=== PATIENT | male | born 1970 | race Caucasian/White ===

== ENCOUNTER 2016-11-14 09:25 | Emergency (ER) | payer OTHER ==
[~2016-11-14] VITALS: Ht 185.4 cm; Wt 78.0 kg
[2016-11-14] MEDS ORDERED: METRONIDAZOLE500 MG ORAL (09:37)
--- NOTE | 2016-11-14 09:54 | Emergency Room Report ---
History of Present Illness General Chief Complaint: Diarrhea Source: Patient Present Illness HPI Patient is a 46-year-old male who presented after increased abdominal pain and diarrhea. Patient stated that for several weeks has been having increased abdominal cramping as well as bloody stool. Patient had previously been taking Bactrim for urinary tract infection. He subsequently began increased diarrhea and was started on oral Flagyl. Patient had testing performed for possible C. difficile colitis. Patient had been taking a probiotic. The patient reports having a prior inguinal hernia repair. He denies any current vomiting. He reports having some weight loss. Allergies: Coded Allergies: No Known Allergies (Unverified , 11/14/16) Patient History Past Medical History: see triage record Reviewed Nursing Documentation: PMH: Agreed, PSxH: Agreed Nursing Documentation-PMH Past Medical History: No History, Except For Review of Systems All Other Systems: negative except mentioned in HPI Physical Exam Vital Signs Date Time Temp Pulse Resp B/P Pulse Ox O2 Delivery O2 Flow Rate FiO2 11/14/16 09:28 99.0 130 18 114/77 99 Room Air Sp02 EP Interpretation: reviewed, normal General Appearance: normal inspection, well appearing, no apparent distress, alert, GCS 15 Head: atraumatic ENT: normal ENT inspection, hearing grossly normal, normal voice Neck: normal inspection, full range of motion, supple, no bony tend Respiratory: normal inspection, lungs clear, normal breath sounds, no respiratory distress, no retraction, no wheezing Cardiovascular #1: regular rate, rhythm, no edema Gastrointestinal: normal bowel sounds, non tender, soft, no guarding, no hernia , tenderness - mild diffuse Genitourinary: no CVA tenderness Musculoskeletal: normal inspection, back normal, normal range of motion Neurologic: normal inspection, alert, oriented x3, responsive, tools developer III-XII nml as tested, speech normal Psychiatric: normal inspection, judgement/insight normal, mood/affect normal Skin: normal color, no rash, other - hand finger Medical Decision Making Diagnostic Impression: Primary Impression: Acute colitis Additional Impressions: Dehydration Hyponatremia ER Course Patient presented for abdominal pain. Differential diagnoses included ischemic bowel, appendicitis, perforated viscus, abdominal aortic aneurysm, inferior myocardial infarction, viral gastroenteritis Because of complexity of patient's case laboratory testing and imaging studies were ordered.The patient given IV fluids as well as IV antibiotics. Patient noted have some episodes weight loss as well as bloody stool.The patient had no recent travel but had been on several antibiotics recently.CT abdomen pelvis read by radiology showed colitis. Laboratory testing was notable for mildly elevated white blood count. Patient was discussed with Dr. Guerrero for the patient's HMO who agreed accept patient in transfer. Labs Test 11/14/16 09:40 11/14/16 10:45 11/14/16 11:51 White Blood Count 14.8 K/UL (4.8-10.8) Red Blood Count 5.11 M/UL (4.70-6.10) Hemoglobin 14.2 G/DL (14.2-18.0) Hematocrit 43.3 % (42.0-52.0) Mean Corpuscular Volume 85 FL (80-99) Mean Corpuscular Hemoglobin 27.8 PG (27.0-31.0) Mean Corpuscular Hemoglobin Concent 32.8 G/DL (32.0-36.0) Red Cell Distribution Width 11.0 % (11.6-14.8) Platelet Count 401 K/UL (150-450) Mean Platelet Volume 6.1 FL (6.5-10.1) Neutrophils (%) (Auto) 74.0 % (45.0-75.0) Lymphocytes (%) (Auto) 10.7 % (20.0-45.0) Monocytes (%) (Auto) 12.2 % (1.0-10.0) Eosinophils (%) (Auto) 1.3 % (0.0-3.0) Basophils (%) (Auto) 1.8 % (0.0-2.0) Prothrombin Time 18.7 SEC (9.30-11.50) Prothromb Time International Ratio 1.8 (0.9-1.1) Activated Partial Thromboplast Time 34 SEC (23-33) Sodium Level 120 mEQ/L (135-145) Potassium Level 4.4 mEQ/L (3.4-4.9) Chloride Level 76 mEQ/L (98-107) Carbon Dioxide Level 27 mEQ/L (20-30) Anion Gap 17 (5-15) Blood Urea Nitrogen 11 mg/dL (7-23) Creatinine 0.9 mg/dL (0.7-1.2) Estimat Glomerular Filtration Rate > 60 mL/min (>60) Glucose Level 129 mg/dL (74-106) Calcium Level 8.9 mg/dL (8.6-10.2) Total Bilirubin 0.3 mg/dL (0.0-1.2) Aspartate Amino Transf (AST/SGOT) 79 U/L (5-40) Alanine Aminotransferase (ALT/SGPT) 28 U/L (3-41) Alkaline Phosphatase 80 U/L (40-129) Total Protein 6.3 g/dL (6.6-8.7) Albumin 3.0 g/dL (3.5-5.2) Globulin 3.3 g/dL Albumin/Globulin Ratio 0.9 (1.0-2.7) Lipase 23 U/L (< 60) Urine Color Pale yellow Urine Appearance Clear Urine pH 6.5 (4.5-8.0) Urine Specific [place] 1.015 (1.005-1.035) Urine Protein Negative (NEGATIVE) Urine Glucose (UA) Negative (NEGATIVE) Urine Ketones 1+ (NEGATIVE) Urine Occult Blood 2+ (NEGATIVE) Urine Nitrite Negative (NEGATIVE) Urine Bilirubin Negative (NEGATIVE) Urine Urobilinogen Normal MG/DL (0.0-1.0) Urine Leukocyte Esterase 1+ (NEGATIVE) Urine RBC 2-4 /HPF (0 - 0) Urine WBC 2-4 /HPF (0 - 0) Urine Squamous Epithelial Cells Occasional /LPF Urine Bacteria Occasional /HPF (NONE) Urine Random Sodium < 10 mmol/L Last Vital Signs Date Time Temp Pulse Resp B/P Pulse Ox O2 Delivery O2 Flow Rate FiO2 11/14/16 09:28 99.0 130 18 114/77 99 Room Air Status: unchanged Disposition: XFER [facility] Condition: Serious Referrals: [facility],REFERRING (PCP) Ciro Garcia Nov 14, 2016 09:54
[2016-11-14 10:18] LABS: BASOPHILS % (AUTO) 1.8 % (0.0-2.0); EOSINOPHILS % (AUTO) 1.3 % (0.0-3.0); LYMPHOCYTES % (AUTO) 10.7 % (20.0-45.0); MEAN CORPUSCULAR HEMOGLOBIN 27.8 PG (27.0-31.0); MEAN CORPUSCULAR HGB CONC 32.8 G/DL (32.0-36.0); MEAN CORPUSCULAR VOLUME 85 FL (80-99); MEAN PLATELET VOLUME 6.1 FL (6.5-10.1); MONOCYTES % (AUTO) 12.2 % (1.0-10.0); PLATELET COUNT 401 K/UL (150-450); RED BLOOD COUNT 5.11 M/UL (4.70-6.10); WHITE BLOOD COUNT 14.8 K/UL (4.8-10.8)
[2016-11-14 10:22] VITALS: BP 114/64
[2016-11-14 10:27] LABS: ALANINE AMINOTRANSFERASE 28 U/L (3-41); ALBUMIN/GLOBULIN RATIO 0.9 (1.0-2.7); ASPARTATE AMINO TRANSFERASE 79 U/L (5-40); CALCIUM 8.9 mg/dL (8.6-10.2); CARBON DIOXIDE 27 mEQ/L (20-30); CHLORIDE 76 mEQ/L (98-107); CREATININE 0.9 mg/dL (0.7-1.2); GLOMERULAR FILTRATION RATE > 60 mL/min (>60); HEMOLYSIS 4; LIPASE 23 U/L (< 60); POTASSIUM 4.4 mEQ/L (3.4-4.9); TOTAL PROTEIN 6.3 g/dL (6.6-8.7)
[2016-11-14 10:29] LABS: INR 1.8 (0.9-1.1); PROTHROMBIN TIME 18.7 SEC (9.30-11.50)
[2016-11-14 10:32] LABS: ANION GAP 17 (5-15); SODIUM 120 mEQ/L (135-145)
[2016-11-14 11:31] LABS: APPEARANCE,URINE CLEAR; KETONES,URINE 1+ (NEGATIVE); LEUKOCYTE ESTERASE ,URINE 1+ (NEGATIVE); NITRITE,URINE NEGATIVE (NEGATIVE); PH,URINE 6.5 (4.5-8.0); PROTEIN,URINE NEGATIVE (NEGATIVE); UROBILINOGEN,URINE NORMAL MG/DL (0.0-1.0)
[2016-11-14 11:43] LABS: BACTERIA,URINE OCCASIONAL /HPF; SQUAMOUS EPITHELIAL CELL,UR OCCASIONAL /LPF (NONE/OCC)
[2016-11-14] MEDS ORDERED: metroNIDAZOLE 500mg tab ORAL ONE (12:30)
[2016-11-14 12:58] VITALS: BP 116/65
[2016-11-14 13:04] VITALS: BP 116/65
--- NOTE | 2016-11-15 11:03 | Diagnostic Imaging Report ---
Clinical Indication: Abdominal pain and diarrhea Technique: Patient given oral contrast. IV administration nonionic contrast. Venous phase spiral acquisition obtained through the abdomen and pelvis. Multiplanar reconstructions were generated. Total dose length product 89 mGycm. CTDIvol(s) 17 mGy. Dose reduction achieved using automated exposure control Comparison: None Findings: The appendix is normal. There is marked wall thickening of entirety of the colon, most striking in the ascending and proximal transverse colon. There is also mild wall thickening of the terminal ileum. No evidence of diverticulosis or diverticulitis. No small bowel distention. Contrast is seen as far distally as the ascending colon. Prominent and numerous mesenteric lymph nodes are noted, particularly in the right lower quadrant. No free or loculated intraperitoneal air or fluid is evident. The distal esophagus, stomach, duodenum are unremarkable. No small bowel wall thickening. The liver is mildly hypoattenuating, consistent with fatty change. The gallbladder, bile ducts, pancreas, spleen, adrenals kidneys are all unremarkable. No retroperitoneal or pelvic mass or adenopathy. Calcifications are seen in the prostate. The included lung bases are clear. The bones are unremarkable. Impression: Diffuse colon wall thickening, consistent with colitis, nonspecific as regards etiology. There is also minimal inflammation of the terminal ileum. Mesenteric lymphadenopathy, suspect reactive related to the above. Equivocal mild hepatic hypoattenuation, may reflect fatty change This agrees with the preliminary interpretation provided overnight by Dr. Hayes The CT scanner at [facility] [place] is accredited by the [employer] and the scans are performed using protocols designed to limit radiation exposure to as low as reasonably achievable to attain images of sufficient resolution adequate for diagnostic evaluation.
== END 2016-11-14 13:20 | disposition short-term general hospital (02) ==
LOC: EMR 09:45
DX: K52.9 Noninfective gastroenteritis and colitis, unspecified (principal); E86.0 Dehydration; E87.1 Hypo-osmolality and hyponatremia
CPT/HCPCS: 36415; 74177; 80053; 81003; 82270; 83690; 84300; 85025; 85610; 85730; 87040; 87045; 87324; 96374; 99285; Q9967